=== PATIENT | female | born 1945 | race Caucasian/White ===

== ENCOUNTER 2017-03-31 00:54 | Inpatient (IN) | payer MEDICARE ==
[2017-03-31] VITALS (9 sets, daily range): BP systolic 125–163; BP diastolic 47–89; PULSE 72–104; TEMP 97.8–98.8
[~2017-03-31] VITALS: Ht 162.6 cm; Wt 114.0 kg
[2017-03-31] MEDS ORDERED: HUMULIN 70/3100 U/M1 SQ (01:03)
[2017-03-31 01:17] LABS: BASO # 0.1 (0.0-0.2); BASO % 0.7 % (0.0-2.0); EOS # 0.2 (0.0-0.7); GRAN # 3.9 (1.4-6.5); GRAN % 52.8 % (42.2-75.2); HEMATOCRIT 37.9 % (37.0-47.0); HEMOGLOBIN 12.8 g/dl (12.5-16.0); LYMPH # 2.5 (1.2-3.4); LYMPH % 34.2 % (20.0-51.0); MEAN CELL VOLUME 88 fl (80.0-100.0); MEAN CORPUSCULAR HEMOGLOBIN 30 pg (27.0-31.0); MEAN CORPUSCULAR HGB CONC 34 g/dl (33.0-37.0); MEAN PLATELET VOLUME 9.7 fl (7.4-10.4); MONO # 0.7 (0.1-0.6); MONO % 9.5 % (1.7-9.3); PLATELET COUNT 332 K/mm3 (130-400); WHITE BLOOD COUNT 7.4 K/mm3 (4.8-10.8)
[2017-03-31 01:28] LABS: ALANINE AMINOTRANSFERASE 40 U/L (9-52); ALBUMIN 3.8 gm/dL (3.5-5.0); ALKALINE PHOSPHATASE 132 U/L (50-136); ANION GAP 11 mmol/L (7-16); BILIRUBIN,TOTAL 0.8 mg/dL (0.0-1.0); BLOOD UREA NITROGEN 13 mg/dL (7-17); CALCIUM 10.8 mg/dL (8.4-10.2); CARBON DIOXIDE 24 mmol/L (22-30); CHLORIDE 101 mmol/L (98-107); CREATININE, serum 0.66 mg/dL (0.52-1.25); GLUCOSE 383 mg/dL (74-106); LIPASE 60 U/L (23-300); MAGNESIUM 1.5 mg/dL (1.6-2.3); POTASSIUM 4.4 mmol/L (3.4-5.0); SODIUM 136 mmol/L (137-145); TOTAL PROTEIN 7.4 gm/dL (6.4-8.2)
[2017-03-31 01:39] LABS: B-TYPE NATRIURETIC PEPTIDE 60 pg/mL (0-125)
[2017-03-31 01:52] LABS: PROTHROMBIN TIME 11.5 SECONDS (9.7-12.8)
[2017-03-31 01:55] LABS: PARTIAL THROMBOPLASTIN TIME 31.9 SECONDS (26.0-37.0)
[2017-03-31] MEDS ORDERED: NOVOLIN 70/30 710 ML SQ (02:20)
[2017-03-31] MEDS ORDERED: THYROID MEDICATION (03:39)
[2017-03-31] MEDS ORDERED: BLOOD PRESSURE MED (03:39)
[2017-03-31] MEDS ORDERED: METFORMIN (03:42)
[2017-03-31] MEDS ORDERED: CHOLESTEROL (03:43)
[2017-03-31 05:24] LABS: THYROID STIMULATING HORMONE 5.43 uIU/mL (0.465-4.680)
[2017-03-31] MEDS ORDERED: SYNTHROID0.05 MG/TA PO (09:31)
[2017-03-31] MEDS ORDERED: GLUCOPHAGE1000 MG PO (09:32)
[2017-03-31] MEDS ORDERED: NORVASC 10MG10 MG PO (09:32)
[2017-03-31] MEDS ORDERED: LOPRESSOR100 MG PO (09:32)
[2017-03-31] MEDS ORDERED: COZAAR100 MG PO (09:33)
[2017-04-01] VITALS (333 sets, daily range): BP systolic 132–158; BP diastolic 60–92; PULSE 77–94; TEMP 98–98.4; O2SAT 87–99
[2017-04-01 10:41] LABS: MAGNESIUM 1.4 mg/dL (1.6-2.3); POTASSIUM 4.1 mmol/L (3.4-5.0)
[2017-04-01 14:02] LABS: PH 6 (5-8); SQUAMOUS EPITHELIAL 0-2 /hpf; URINE APPEARANCE Clear; URINE BACTERIA Rare /hpf; URINE BILIRUBIN Negative (NEGATIVE); URINE BLOOD Negative (NEGATIVE); URINE COLOR Yellow; URINE GLUCOSE 3+ (NEGATIVE); URINE KETONE 1+ (NEGATIVE); URINE RBC 0-2 /hpf; URINE UROBILINOGEN Negative (NEGATIVE); URINE WBC 0-2 /hpf
[2017-04-01] MEDS ORDERED: HUMULIN 70/30 PE3 ML SQ (19:34)
[2017-04-01] MEDS ORDERED: HUMULIN R U-500 U/ML SQ (19:36)
[2017-04-02] VITALS (937 sets, daily range): BP systolic 113–180; BP diastolic 56–102; PULSE 63–106; TEMP 97.2–98.6; O2SAT 77–100
[2017-04-02 05:53] LABS: BASO # 0.1 (0.0-0.2); BASO % 0.6 % (0.0-2.0); EOS # 0.2 (0.0-0.7); EOS % 1.5 % (0-4.0); GRAN # 6.8 (1.4-6.5); GRAN % 67.1 % (42.2-75.2); HEMOGLOBIN 13.2 g/dl (12.5-16.0); LYMPH # 2.3 (1.2-3.4); LYMPH % 22.9 % (20.0-51.0); MEAN CELL VOLUME 89 fl (80.0-100.0); MEAN CORPUSCULAR HEMOGLOBIN 29 pg (27.0-31.0); MEAN CORPUSCULAR HGB CONC 33 g/dl (33.0-37.0); MEAN PLATELET VOLUME 9.6 fl (7.4-10.4); MONO # 0.8 (0.1-0.6); MONO % 7.4 % (1.7-9.3); PLATELET COUNT 306 K/mm3 (130-400); RED BLOOD COUNT 4.52 M/mm3 (4.10-5.30); REDCELL DISTRIBUTION WIDTH-CV 13.6 % (11.5-14.5); WHITE BLOOD COUNT 10.1 K/mm3 (4.8-10.8)
[2017-04-02 06:05] LABS: ADJUSTED CALCIUM 10.7 mg/dL (8.4-10.2); ALBUMIN 3.7 gm/dL (3.5-5.0); BILIRUBIN,TOTAL 0.7 mg/dL (0.0-1.0); CALCIUM 10.5 mg/dL (8.4-10.2); CREATININE, serum 0.68 mg/dL (0.52-1.25); POTASSIUM 4.3 mmol/L (3.4-5.0); TOTAL PROTEIN 7.3 gm/dL (6.4-8.2)
[2017-04-02 06:26] LABS: MAGNESIUM 1.7 mg/dL (1.6-2.3); PHOSPHOROUS 3.8 mg/dL (2.5-4.5)
[2017-04-03 03:33] VITALS: BP 157/70; PULSE 103; TEMP 98.4
[2017-04-03 07:40] VITALS: BP 167/73; PULSE 102; TEMP 98
[2017-04-03 12:12] VITALS: BP 185/65; PULSE 97
[2017-04-03 12:35] LABS: ARTERIAL BLD GAS O2 SATURATION 96.9 % (92-100); ARTERIAL BLD GAS TCO2 CT 25.8; ARTERIAL BLOOD GAS BASE EXCESS 0.4 (-2-2); ARTERIAL BLOOD GAS HCO3 24.6 meq/L (22-26); ARTERIAL BLOOD GAS PHT 7.42 C (7.35-7.45); ARTERIAL BLOOD GAS PO2 94.8 mmHg (80-100); ARTERIAL BLOOD GAS PO2T 94.8 (80-100); ARTERIAL BLOOD GAS pH 7.42 (7.35-7.45); ATS? YES; OXYHEMOGLOBIN 95.7 %
[2017-04-03 14:00] LABS: PH 6 (5-8); SQUAMOUS EPITHELIAL None Seen /hpf; URINE APPEARANCE Cloudy; URINE BACTERIA Occasional /hpf; URINE BILIRUBIN Negative (NEGATIVE); URINE BLOOD 3+ (NEGATIVE); URINE COLOR Amber; URINE GLUCOSE 3+ (NEGATIVE); URINE KETONE 2+ (NEGATIVE); URINE RBC >50 /hpf; URINE UROBILINOGEN Negative (NEGATIVE)
[2017-04-03 15:49] VITALS: BP 154/74; PULSE 111; TEMP 98.3
[2017-04-03 19:33] VITALS: BP 157/70; PULSE 102
[2017-04-03 22:41] VITALS: BP 147/58; PULSE 105; TEMP 99.2
[2017-04-04 02:15] VITALS: BP 155/66; PULSE 112; TEMP 98.1
[2017-04-04 07:26] LABS: BASO # 0.1 (0.0-0.2); BASO % 0.5 % (0.0-2.0); EOS # 0.1 (0.0-0.7); EOS % 0.7 % (0-4.0); GRAN # 10.1 (1.4-6.5); HEMOGLOBIN 12.8 g/dl (12.5-16.0); LYMPH # 1.6 (1.2-3.4); LYMPH % 12.1 % (20.0-51.0); MEAN CELL VOLUME 89 fl (80.0-100.0); MEAN CORPUSCULAR HEMOGLOBIN 29 pg (27.0-31.0); MEAN CORPUSCULAR HGB CONC 33 g/dl (33.0-37.0); MEAN PLATELET VOLUME 9.7 fl (7.4-10.4); MONO # 0.9 (0.1-0.6); MONO % 7.1 % (1.7-9.3); PLATELET COUNT 322 K/mm3 (130-400); RED BLOOD COUNT 4.37 M/mm3 (4.10-5.30); REDCELL DISTRIBUTION WIDTH-CV 13.9 % (11.5-14.5); WHITE BLOOD COUNT 12.8 K/mm3 (4.8-10.8)
[2017-04-04 07:39] LABS: CALCIUM 10.9 mg/dL (8.4-10.2); CREATININE, serum 0.56 mg/dL (0.52-1.25)
[2017-04-04 08:34] VITALS: BP 171/74; PULSE 96; TEMP 97.8
[2017-04-04 11:43] VITALS: BP 165/72; PULSE 96; TEMP 98.5
[2017-04-04 16:50] VITALS: BP 159/76; PULSE 97; TEMP 97.7
[2017-04-04 20:37] VITALS: BP 207/88; PULSE 110; TEMP 98.4
[2017-04-04 23:42] VITALS: BP 154/48; PULSE 111; TEMP 98.3
[2017-04-05 03:55] VITALS: BP 116/70; BP 16/70; PULSE 98; TEMP 98.2
[2017-04-05 06:55] LABS: BASO # 0.1 (0.0-0.2); BASO % 0.4 % (0.0-2.0); EOS % 0.2 % (0-4.0); GRAN # 10.4 (1.4-6.5); GRAN % 80.9 % (42.2-75.2); HEMATOCRIT 39.1 % (37.0-47.0); HEMOGLOBIN 12.9 g/dl (12.5-16.0); LYMPH # 1.2 (1.2-3.4); MEAN CELL VOLUME 90 fl (80.0-100.0); MEAN CORPUSCULAR HEMOGLOBIN 30 pg (27.0-31.0); MEAN CORPUSCULAR HGB CONC 33 g/dl (33.0-37.0); MEAN PLATELET VOLUME 9.8 fl (7.4-10.4); MONO # 1.1 (0.1-0.6); MONO % 8.8 % (1.7-9.3); PLATELET COUNT 308 K/mm3 (130-400); RED BLOOD COUNT 4.37 M/mm3 (4.10-5.30); REDCELL DISTRIBUTION WIDTH-CV 13.9 % (11.5-14.5); WHITE BLOOD COUNT 12.8 K/mm3 (4.8-10.8)
[2017-04-05 07:13] LABS: CALCIUM 11.4 mg/dL (8.4-10.2); CREATININE, serum 0.54 mg/dL (0.52-1.25); POTASSIUM 4.1 mmol/L (3.4-5.0)
[2017-04-05 07:55] VITALS: BP 174/68; PULSE 99; TEMP 98
[2017-04-05 11:46] VITALS: BP 155/66; PULSE 96; TEMP 98.5
[2017-04-05 15:42] VITALS: BP 161/77; PULSE 102; TEMP 98.3
[2017-04-05 20:22] VITALS: BP 154/64; PULSE 104; TEMP 98.3
[2017-04-05 22:22] VITALS: BP 138/59; PULSE 103; TEMP 98.6
[2017-04-06] VITALS (7 sets, daily range): BP systolic 141–183; BP diastolic 50–79; PULSE 75–90; TEMP 98–98.6
[2017-04-06 07:58] LABS: BASO # 0.1 (0.0-0.2); BASO % 0.5 % (0.0-2.0); EOS # 0.3 (0.0-0.7); EOS % 2.9 % (0-4.0); GRAN % 73.6 % (42.2-75.2); HEMATOCRIT 38.4 % (37.0-47.0); HEMOGLOBIN 12.5 g/dl (12.5-16.0); LYMPH # 1.6 (1.2-3.4); LYMPH % 14.5 % (20.0-51.0); MEAN CELL VOLUME 92 fl (80.0-100.0); MEAN CORPUSCULAR HEMOGLOBIN 30 pg (27.0-31.0); MEAN CORPUSCULAR HGB CONC 33 g/dl (33.0-37.0); MEAN PLATELET VOLUME 10.2 fl (7.4-10.4); MONO # 0.9 (0.1-0.6); MONO % 7.9 % (1.7-9.3); PLATELET COUNT 291 K/mm3 (130-400); RED BLOOD COUNT 4.18 M/mm3 (4.10-5.30); WHITE BLOOD COUNT 10.9 K/mm3 (4.8-10.8)
[2017-04-06 08:12] LABS: CALCIUM 11.3 mg/dL (8.4-10.2); CREATININE, serum 0.6 mg/dL (0.52-1.25)
[2017-04-07 04:15] VITALS: BP 153/69; PULSE 78; TEMP 98.5
[2017-04-07 07:54] VITALS: BP 162/64; PULSE 85; TEMP 99.3
[2017-04-07] MEDS ORDERED: ASPI325T6 PO (09:41)
[2017-04-07] MEDS ORDERED: TYLENOL 325MG325 MG PO (09:42)
[2017-04-07] MEDS ORDERED: LEVEMIR FLEX100 U/ML SQ (09:42)
[2017-04-07] MEDS ORDERED: NOVOLOG FLEX100 U/ML SQ (09:43)
[2017-04-07] MEDS ORDERED: LIPITOR20 MG PO (10:11)
[2017-04-07] MEDS ORDERED: ANTACID 225 MG360 M1 PO (10:14)
[2017-04-07] MEDS ORDERED: CEFTIN 250250 MG/TAB PO (10:32)
[2017-04-07 11:35] VITALS: BP 110/35; PULSE 72; TEMP 98.4
[2017-04-07 15:11] VITALS: BP 138/48; PULSE 73; TEMP 98.1
[2017-04-07 20:15] VITALS: BP 127/52; BP 146/121; PULSE 89; TEMP 98
[2017-04-08 00:17] VITALS: BP 156/68; PULSE 72; TEMP 98.5
[2017-04-08 04:28] VITALS: BP 188/79; PULSE 83; TEMP 98.2
[2017-04-08 07:53] VITALS: BP 153/60; PULSE 86; TEMP 98.6
[2017-04-08 11:56] VITALS: BP 159/76; PULSE 69
[2017-04-08 17:04] VITALS: BP 146/48; PULSE 73; TEMP 97.9
[2017-04-08 21:55] VITALS: BP 148/56; PULSE 79; TEMP 98.1
[2017-04-09] VITALS (7 sets, daily range): BP systolic 141–167; BP diastolic 61–116; PULSE 72–177; TEMP 96.9–98.7
[2017-04-10 02:46] VITALS: BP 152/77; PULSE 98; TEMP 98.6
[2017-04-10 09:17] VITALS: BP 152/103; PULSE 84; TEMP 97
[2017-04-10 11:02] VITALS: BP 152/103; PULSE 84; TEMP 97
== END 2017-04-10 11:56 | DRG 637 ==
LOC: COL.ER 00:54 → MEDICAL 02:28 → ICU 04-01 18:00 → MEDICAL 04-02 17:25 → ICU 04-02 17:25 → MEDICAL 04-02 17:25
PROVIDERS: Family Medicine; Physician Assistant; Psychiatry & Neurology Psychiatry
DX: E11.65 Type 2 diabetes mellitus with hyperglycemia (principal); I21.4 Non-ST elevation (NSTEMI) myocardial infarction; F05 Delirium due to known physiological condition; Z68.42 Body mass index [BMI] 45.0-49.9, adult; N39.0 Urinary tract infection, site not specified; I10 Essential (primary) hypertension; Z87.891 Personal history of nicotine dependence; Z79.4 Long term (current) use of insulin; E66.9 Obesity, unspecified; B96.20 Unspecified Escherichia coli [E. coli] as the cause of diseases classified elsewhere; G47.33 Obstructive sleep apnea (adult) (pediatric); Z91.14 Patient's other noncompliance with medication regimen
CPT/HCPCS: 90791-AI; 99223-AI; 99232-AI; 99233-AI; 99239; A4315; A9502; J0360; J0692; J1630; J1650; J1815; J2060; J2270; J2405; J2785; J3475; J3480; J7030

== ENCOUNTER → 2018-09-03 | Outpatient (CLI) | payer MEDICARE ==
[~2018-09-03] MED LIST: ANTACID 225 MG360 M1 PO; ASPI325T6 PO; BLOOD PRESSURE MED; CEFTIN 250250 MG/TAB PO; CHOLESTEROL; COZAAR100 MG PO; GLUCOPHAGE1000 MG PO; HUMULIN 70/30 PE3 ML SQ; HUMULIN 70/3100 U/M1 SQ; HUMULIN R U-500 U/ML SQ; LEVEMIR FLEX100 U/ML SQ; LIPITOR20 MG PO; LOPRESSOR100 MG PO; METFORMIN; NORVASC 10MG10 MG PO; NOVOLIN 70/30 710 ML SQ; NOVOLOG FLEX100 U/ML SQ; SYNTHROID0.05 MG/TA PO; THYROID MEDICATION; TYLENOL 325MG325 MG PO
== END ==
LOC: COL.RAD 12:23
DX: I67.82 Cerebral ischemia (principal)
CPT/HCPCS: A9585

== ENCOUNTER → 2019-02-05 | Outpatient (CLI) | payer MEDICARE | LOC: ZLAB.STJ 10:19 | DX: E11.59 Type 2 diabetes mellitus with other circulatory complications (principal) ==

== ENCOUNTER → 2019-05-02 | Outpatient (CLI) | payer MEDICARE | LOC: ZLAB.STJ 15:37 → ZCOL.LAB 15:37 | DX: R77.0 Abnormality of albumin (principal); R80.9 Proteinuria, unspecified ==

== ENCOUNTER → 2019-05-02 | Outpatient (CLI) | payer MEDICARE ==
[2019-05-02 15:15] LABS: BASO # 0.1 (0.0-0.2); BASO % 0.5 % (0.0-2.0); EOS # 0.2 (0.0-0.7); EOS % 1.7 % (0-4.0); GRAN % 71.5 % (42.2-75.2); HEMATOCRIT 38.5 % (37.0-47.0); HEMOGLOBIN 12.5 g/dl (12.5-16.0); LYMPH % 20.7 % (20.0-51.0); MEAN CELL VOLUME 89 fl (80.0-100.0); MEAN CORPUSCULAR HEMOGLOBIN 29 pg (27.0-31.0); MEAN CORPUSCULAR HGB CONC 33 g/dl (33.0-37.0); MEAN PLATELET VOLUME 11.5 fl (7.4-10.4); MONO # 0.5 (0.1-0.6); MONO % 5.3 % (1.7-9.3); PLATELET COUNT 261 K/mm3 (130-400); RED BLOOD COUNT 4.32 M/mm3 (4.10-5.30); REDCELL DISTRIBUTION WIDTH-CV 13.6 % (11.5-14.5)
[2019-05-02 15:20] LABS: ALBUMIN 3.6 gm/dL (3.5-5.0); BILIRUBIN,TOTAL 0.3 mg/dL (0.0-1.0); CALCIUM 11.1 mg/dL (8.4-10.2); CHOLESTEROL RISK RATIO 5.2; CREATININE, serum 0.59 (0.52-1.25); POTASSIUM 4.5 mmol/L (3.4-5.0); TOTAL PROTEIN 7.1 gm/dL (6.4-8.2)
[2019-05-02 15:25] LABS: MUCOUS Present /lpf; PH 6 (5-8); URINE APPEARANCE Hazy; URINE BACTERIA Rare /hpf; URINE BILIRUBIN Negative (NEGATIVE); URINE BLOOD Negative (NEGATIVE); URINE COLOR Yellow; URINE GLUCOSE Negative (NEGATIVE); URINE KETONE Negative (NEGATIVE); URINE LEUKOCYTE ESTERASE 1+ (NEGATIVE); URINE NITRATE Negative (NEGATIVE); URINE PROTEIN(semi-quant) Negative (NEGATIVE); URINE RBC 0-2 /hpf; URINE UROBILINOGEN Negative (NEGATIVE)
[2019-05-02 15:50] LABS: THYROID STIMULATING HORMONE 2.84 uIU/mL (0.465-4.680)
[2019-05-02 18:33] LABS: COLLECTION METHOD CLEAN CATCH
== END ==
LOC: ZLAB.STJ 10:45
PROVIDERS: Family Medicine
DX: Z13.818 Encounter for screening for other digestive system disorders (principal); I10 Essential (primary) hypertension; E78.2 Mixed hyperlipidemia; E11.59 Type 2 diabetes mellitus with other circulatory complications; E03.9 Hypothyroidism, unspecified; R68.89 Other general symptoms and signs

== ENCOUNTER → 2020-02-04 | Outpatient (CLI) | payer MEDICARE ==
[2020-02-04 14:23] LABS: BASO # 0.1 (0.0-0.2); BASO % 0.6 % (0.0-2.0); EOS # 0.2 (0.0-0.7); EOS % 2.6 % (0-4.0); GRAN # 5.7 (1.4-6.5); GRAN % 63.2 % (42.2-75.2); HEMOGLOBIN 12.8 g/dl (12.5-16.0); LYMPH # 2.4 (1.2-3.4); LYMPH % 26.6 % (20.0-51.0); MEAN CELL VOLUME 89 fl (80.0-100.0); MEAN CORPUSCULAR HEMOGLOBIN 29 pg (27.0-31.0); MEAN CORPUSCULAR HGB CONC 32 g/dl (33.0-37.0); MEAN PLATELET VOLUME 10.7 fl (7.4-10.4); MONO # 0.6 (0.1-0.6); MONO % 6.6 % (1.7-9.3); PLATELET COUNT 296 K/mm3 (130-400); RED BLOOD COUNT 4.49 M/mm3 (4.10-5.30); REDCELL DISTRIBUTION WIDTH-CV 13.8 % (11.5-14.5)
[2020-02-04 14:30] LABS: ALBUMIN 3.9 gm/dL (3.5-5.0); BILIRUBIN,TOTAL 0.7 mg/dL (0.0-1.0); CALCIUM 10.6 mg/dL (8.4-10.2); CREATININE, serum 0.5 (0.52-1.25); POTASSIUM 5.1 mmol/L (3.4-5.0); TOTAL PROTEIN 7.5 gm/dL (6.4-8.2)
[2020-02-04 15:00] LABS: THYROID STIMULATING HORMONE 3.15 uIU/mL (0.465-4.680)
== END ==
LOC: ZLAB.STJ 13:29
PROVIDERS: Family Medicine
DX: E11.59 Type 2 diabetes mellitus with other circulatory complications (principal); I10 Essential (primary) hypertension; E03.9 Hypothyroidism, unspecified

== ENCOUNTER → 2020-05-05 | Outpatient (CLI) | payer MEDICARE | LOC: ZLAB.STJ 11:13 | DX: E11.59 Type 2 diabetes mellitus with other circulatory complications (principal) ==

== ENCOUNTER → 2020-07-27 | Outpatient (CLI) | payer MEDICARE ==
[2020-07-27 13:02] LABS: COLLECTION METHOD CLEAN CATCH
[2020-07-27 13:13] LABS: BASO # 0.1 (0.0-0.2); BASO % 0.6 % (0.0-2.0); EOS # 0.2 (0.0-0.7); EOS % 2.2 % (0-4.0); HEMATOCRIT 40.1 % (37.0-47.0); HEMOGLOBIN 12.9 g/dl (12.5-16.0); MEAN CELL VOLUME 90 fl (80.0-100.0); MEAN CORPUSCULAR HEMOGLOBIN 29 pg (27.0-31.0); MEAN CORPUSCULAR HGB CONC 32 g/dl (33.0-37.0); MEAN PLATELET VOLUME 10.7 fl (7.4-10.4); MONO # 0.5 (0.1-0.6); MONO % 5.9 % (1.7-9.3); PLATELET COUNT 313 K/mm3 (130-400); RED BLOOD COUNT 4.48 M/mm3 (4.10-5.30); REDCELL DISTRIBUTION WIDTH-CV 13.8 % (11.5-14.5)
[2020-07-27 13:24] LABS: ALBUMIN 4.1 gm/dL (3.5-5.0); BILIRUBIN,TOTAL 0.5 mg/dL (0.0-1.0); CALCIUM 11.1 mg/dL (8.4-10.2); CHOLESTEROL RISK RATIO 5.6; CREATININE, serum 0.57 (0.52-1.25); POTASSIUM 4.7 mmol/L (3.4-5.0); TOTAL PROTEIN 7.6 gm/dL (6.4-8.2)
[2020-07-27 13:54] LABS: THYROID STIMULATING HORMONE 1.91 uIU/mL (0.465-4.680)
[2020-07-27 14:03] LABS: MUCOUS Present /lpf; PH 5 (5-8); SQUAMOUS EPITHELIAL 20-50 /hpf; URINE APPEARANCE Cloudy; URINE BACTERIA Rare /hpf; URINE BILIRUBIN Negative (NEGATIVE); URINE BLOOD Negative (NEGATIVE); URINE COLOR Yellow; URINE GLUCOSE Negative (NEGATIVE); URINE KETONE Negative (NEGATIVE); URINE LEUKOCYTE ESTERASE 3+ (NEGATIVE); URINE NITRATE Negative (NEGATIVE); URINE PROTEIN(semi-quant) 1+ (NEGATIVE); URINE UROBILINOGEN Negative (NEGATIVE)
[2020-07-28 13:29] LABS: URINE MICROALBUMIN 7.8 mg/dL (0.0-1.7)
== END ==
LOC: ZLAB.STJ 12:36
PROVIDERS: Family Medicine
DX: E11.59 Type 2 diabetes mellitus with other circulatory complications (principal); E78.2 Mixed hyperlipidemia; E55.9 Vitamin D deficiency, unspecified; I10 Essential (primary) hypertension; E03.9 Hypothyroidism, unspecified

== ENCOUNTER → 2020-12-08 | Outpatient (CLI) | payer MEDICARE ==
[~2020-12-08] MED LIST changes: +OMNICEF 300MG300 MG PO
[2020-12-08 11:11] LABS: ALBUMIN 3.9 gm/dL (3.5-5.0); BILIRUBIN,TOTAL 0.2 mg/dL (0.0-1.0); CALCIUM 11.8 mg/dL (8.4-10.2); CREATININE, serum 0.71 (0.52-1.25); POTASSIUM 4.6 mmol/L (3.4-5.0); TOTAL PROTEIN 7.4 gm/dL (6.4-8.2)
[2020-12-09 07:06] LABS: CALCIUM, IONIZED, SERUM 1.75 mmol/L (1.19-1.41)
== END ==
LOC: ZLAB.STJ 10:20
PROVIDERS: Family Medicine
DX: Z13.29 Encounter for screening for other suspected endocrine disorder (principal); E11.59 Type 2 diabetes mellitus with other circulatory complications; E55.9 Vitamin D deficiency, unspecified

== ENCOUNTER → 2021-01-13 | Outpatient (CLI) | payer MEDICARE | LOC: COL.RAD 10:04 | DX: E83.52 Hypercalcemia (principal) | CPT/HCPCS: A9500 ==

== ENCOUNTER → 2021-02-15 | Outpatient (CLI) | payer MEDICARE | LOC: ZLAB.STJ 11:09 | DX: E11.59 Type 2 diabetes mellitus with other circulatory complications (principal) ==

== ENCOUNTER → 2021-03-15 | Outpatient (CLI) | payer MEDICARE | LOC: ZCOL.LAB 11:56 | DX: E03.9 Hypothyroidism, unspecified (principal); Z90.89 Acquired absence of other organs ==

== ENCOUNTER 2021-05-18 01:00 | Emergency (ER) | payer MEDICARE ==
[~2021-05-18] VITALS: Ht 162.6 cm; Wt 118.2 kg
[~2021-05-18 01:00] MED LIST changes: -OMNICEF 300MG300 MG PO
[2021-05-18 01:05] VITALS: TEMP 97.5
[2021-05-18 01:20] LABS: BASO # 0.1 (0.0-0.2); BASO % 0.5 % (0.0-2.0); EOS # 0.2 (0.0-0.7); EOS % 1.7 % (0-4.0); GRAN # 7.9 (1.4-6.5); GRAN % 65.2 % (42.2-75.2); HEMATOCRIT 42.9 % (37.0-47.0); LYMPH # 3.3 (1.2-3.4); LYMPH % 27.5 % (20.0-51.0); MEAN CELL VOLUME 88 fl (80.0-100.0); MEAN CORPUSCULAR HEMOGLOBIN 29 pg (27.0-31.0); MEAN CORPUSCULAR HGB CONC 33 g/dl (33.0-37.0); MEAN PLATELET VOLUME 9.7 fl (7.4-10.4); MONO # 0.6 (0.1-0.6); MONO % 4.8 % (1.7-9.3); PLATELET COUNT 361 K/mm3 (130-400)
[2021-05-18 01:35] LABS: ALBUMIN 4.5 gm/dL (3.5-5.0); BILIRUBIN,TOTAL 0.3 mg/dL (0.0-1.0); CALCIUM 10.1 mg/dL (8.4-10.2); CREATININE, serum 0.9 (0.52-1.25); POTASSIUM 4.3 mmol/L (3.4-5.0); TOTAL PROTEIN 9.2 gm/dL (6.4-8.2)
[2021-05-18 02:17] LABS: MUCOUS Present /lpf; PH 6 (5-8); URINE APPEARANCE Cloudy; URINE BACTERIA None Seen /hpf; URINE BILIRUBIN Negative (NEGATIVE); URINE BLOOD Negative (NEGATIVE); URINE COLOR Yellow; URINE GLUCOSE Negative (NEGATIVE); URINE KETONE Negative (NEGATIVE); URINE LEUKOCYTE ESTERASE 3+ (NEGATIVE); URINE NITRATE Negative (NEGATIVE); URINE PROTEIN(semi-quant) 1+ (NEGATIVE); URINE RBC 0-2 /hpf; URINE UROBILINOGEN Negative (NEGATIVE); URINE WBC 20-50 /hpf
[2021-05-18 02:24] LABS: COLLECTION METHOD CATHETER
[2021-05-18] MEDS ORDERED: OMNICEF 300MG300 MG PO (10:30)
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
[2021-05-18 16:00] VITALS: BP 104/51; PULSE 74
== END 2021-05-18 16:00 | disposition home or self-care (01) ==
LOC: COL.ER 01:00
PROVIDERS: Personal Emergency Response Attendant
DX: N39.0 Urinary tract infection, site not specified (principal); E11.9 Type 2 diabetes mellitus without complications; I10 Essential (primary) hypertension; E03.9 Hypothyroidism, unspecified; E66.9 Obesity, unspecified; Z88.0 Allergy status to penicillin; Z79.4 Long term (current) use of insulin; Z79.890 Hormone replacement therapy; Z79.899 Other long term (current) drug therapy; Z68.41 Body mass index [BMI] 40.0-44.9, adult
CPT/HCPCS: J0696; J7030

== ENCOUNTER → 2021-06-23 | Outpatient (CLI) | payer MEDICARE ==
[~2021-06-23] MED LIST changes: +OMNICEF 300MG300 MG PO
== END ==
LOC: ZLAB.STJ 16:37
DX: E11.59 Type 2 diabetes mellitus with other circulatory complications (principal)

== ENCOUNTER 2021-12-07 08:53 | Emergency (ER) | payer MEDICARE ==
[~2021-12-07] VITALS: Ht 162.6 cm; Wt 109.1 kg
[2021-12-07 09:00] VITALS: TEMP 97.6
[2021-12-07 09:31] LABS: BASO # 0.1 K/mm3 (0.0-0.2); BASO % 0.6 % (0.0-2.0); EOS # 0.2 K/mm3 (0.0-0.7); EOS % 1.7 % (0.0-4.0); GRAN % 74.4 % (42.2-75.2); HEMOGLOBIN 12.2 g/dl (12.5-16.0); LYMPH # 1.6 K/mm3 (1.2-3.4); LYMPH % 17.2 % (20.0-51.0); MEAN CELL VOLUME 85 fl (80.0-100.0); MEAN CORPUSCULAR HEMOGLOBIN 28 pg (27-31); MEAN CORPUSCULAR HGB CONC 34 g/dl (33.0-37.0); MEAN PLATELET VOLUME 9.6 fl (7.4-10.4); MONO # 0.5 K/mm3 (0.1-0.6); MONO % 5.5 % (1.7-9.3); PLATELET COUNT 301 K/mm3 (130-400); RED BLOOD COUNT 4.29 M/mm3 (4.10-5.30); REDCELL DISTRIBUTION WIDTH-CV 14.1 % (11.5-14.5)
[2021-12-07 09:32] LABS: INR 1.1 (0.8-3.0); PROTHROMBIN TIME 11.7 SECONDS (9.7-12.8)
[2021-12-07 09:35] LABS: PARTIAL THROMBOPLASTIN TIME 29.5 SECONDS (26.0-37.0)
[2021-12-07 09:36] LABS: HEMATOCRIT 36.4 % (37.0-47.0)
[2021-12-07 09:42] LABS: ALANINE AMINOTRANSFERASE 16 U/L (0-55); ALKALINE PHOSPHATASE 117 U/L (40-150); ANION GAP 11 mmol/L (7-16); AST,SGOT 11 U/L (5-34); BILIRUBIN,TOTAL 0.5 mg/dL (0.2-1.2); BLOOD UREA NITROGEN 13 mg/dL (10-20); CALCIUM 9.3 mg/dL (8.4-10.2); CARBON DIOXIDE 23 mmol/L (23-31); CHLORIDE 104 mmol/L (98-107); CREATININE, serum 0.73 mg/dL (0.57-1.11); GLUCOSE 184 mg/dL (70-99); SODIUM 138 mmol/L (136-145); TOTAL PROTEIN 7.3 gm/dL (6.2-8.1)
[2021-12-07 09:48] LABS: TROPONIN-I < 0.010 ng/mL (0.00-0.033)
[2021-12-07 11:13] LABS: COLLECTION METHOD CLEAN CATCH
[2021-12-07 11:27] LABS: MUCOUS Present (NOT PRESENT); PH 6 (5-8); SQUAMOUS EPITHELIAL 20-50 /hpf (0-10); URINE APPEARANCE Cloudy (CLEAR/HAZY); URINE BACTERIA Rare /hpf (NONE SEEN); URINE BILIRUBIN Negative (NEGATIVE); URINE BLOOD Negative (NEGATIVE); URINE COLOR Yellow (YELLOW); URINE GLUCOSE Negative (NEGATIVE); URINE KETONE Negative (NEGATIVE); URINE LEUKOCYTE ESTERASE 2+ (NEGATIVE); URINE NITRATE Negative (NEGATIVE); URINE PROTEIN(semi-quant) 1+ (NEGATIVE); URINE RBC 0-2 /hpf (0-2); URINE UROBILINOGEN Negative (NEGATIVE)
[2021-12-07] MEDS ORDERED: CEPHALEXIN500 M1 PO (11:34)
[2021-12-07 11:47] VITALS: BP 140/57; PULSE 77
== END 2021-12-07 12:37 | disposition home or self-care (01) ==
LOC: COL.ER 08:53
PROVIDERS: Emergency Medicine
DX: N39.0 Urinary tract infection, site not specified (principal); R55 Syncope and collapse; E66.9 Obesity, unspecified; Z68.41 Body mass index [BMI] 40.0-44.9, adult; Z88.0 Allergy status to penicillin
CPT/HCPCS: J0696; J7040

== ENCOUNTER → 2021-12-30 | Outpatient (CLI) | payer MEDICARE ==
[~2021-12-30] MED LIST changes: +CEPHALEXIN500 M1 PO
== END ==
LOC: ZLAB.STJ 13:55
DX: E11.59 Type 2 diabetes mellitus with other circulatory complications (principal)

== ENCOUNTER → 2022-05-26 | Outpatient (CLI) | payer MEDICARE | LOC: ZLAB.STJ 16:24 | DX: E11.59 Type 2 diabetes mellitus with other circulatory complications (principal) ==